=== PATIENT | male | born 1935 | race Caucasian/White ===

== ENCOUNTER 2020-05-25 10:39 | Emergency (ER) | payer MEDICARE, OTHER ==
--- NOTE | 2020-05-25 11:20 | EDM.PDOC ---
ED HPI GENERAL MEDICAL PROBLEM - General Chief Complaint: Trauma Stated Complaint: FELL/HURT NOSE AREA Time Seen by Provider: 05/25/20 11:06 Source of Information: Reports: Patient, Family History Limitations: Reports: Physical Impairment, Other (Hard of Hearing) - History of Present Illness INITIAL COMMENTS - FREE TEXT/NARRATIVE: 85-year-old male at home experienced a witnessed fall that was accidental. No reported loss of consciousness or prolonged downtime. Sustained injury to forehead and nose. Currently denies any headache, weakness, dizziness, pain, chest pain, abdominal pain, shortness of breath. Has not been tested for Covid to date. Has not had symptoms of Covid to date. Does not take a blood thinner. Additional historical information obtained from patient's son. No further information available at this time. Onset: Today (The) Onset Date: 05/25/20 Onset Time: 08:30 - Related Data Allergies Allergy/AdvReac Type Severity Reaction Status Date / Time No Known Allergies Allergy Verified 05/25/20 11:05 Home Meds: Home Meds Aa8/A-Carnitin/Grp/[place]/Hc126 [Gabadone Capsule] 200 mg PO TID 05/25/20 [History] Ascorbate Calcium [Vitamin C] 500 mg PO BID 05/25/20 [History] Aspirin [Aspirin EC] 81 mg PO DAILY 05/25/20 [History] Budesonide/Formoterol [Symbicort 160-4.5 MCG] 2 mcg INH BID 05/25/20 [History] Cetirizine [ZyrTEC] 10 mg PO DAILY 05/25/20 [History] Ferrous Gluconate 324 mg PO BID 05/25/20 [History] Furosemide 40 mg PO DAILY 05/25/20 [History] Ipratropium/Albuterol Sulfate [Iprat-Albut 0.5-3(2.5) MG/3 ML] 1 unit INH Q6HR 05/25/20 [History] Levothyroxine 25 mcg PO ACBREAKFAST 05/25/20 [History] Nitroglycerin [Nitrostat] 0.4 mg SL PRN 05/25/20 [History] Tamsulosin [Flomax] 0.4 mg PO DAILY 05/25/20 [History] Venlafaxine HCl [Venlafaxine ER] 150 mg PO DAILY 05/25/20 [History] atorvaSTATin [Lipitor] 10 mg PO DAILY 05/25/20 [History] tiZANidine [Zanaflex] 4 mg PO BEDTIME 05/25/20 [History] ED ROS GENERAL - Review of Systems Review Of Systems: Comprehensive ROS is negative, except as noted in HPI. ED EXAM, GENERAL - Physical Exam Exam: See Below Exam Limited By: Other (Hard of hearing) Ears: Normal External Exam Nose: Nasal Tenderness, Nasal Swelling Throat/Mouth: Normal Inspection, Normal Voice, No Airway Compromise Head: Facial Swelling, Facial Tenderness Neck: Supple, Non-Tender, Full Range of Motion Respiratory/Chest: No Respiratory Distress, Normal Breath Sounds Cardiovascular: Normal Peripheral Pulses, Regular Rate, Rhythm Peripheral Pulses: 2+: Radial (R), Femoral (L) GI/Abdominal: Soft, Non-Tender, No Distention Back Exam: Normal Inspection Extremities: Normal Inspection, Normal Range of Motion, Non-Tender Neurological: Alert, Oriented, CN II-XII Intact, No Motor/Sensory Deficits Psychiatric: Normal Affect, Normal Mood Course - Vital Signs Last Recorded V/S: Last Vital Signs Temp 99.8 F 05/25/20 11:05 Pulse 78 05/25/20 11:05 Resp 20 05/25/20 11:05 BP 130/55 L 05/25/20 11:05 Pulse Ox 98 05/25/20 11:05 - Radiology Interpretation Free Text/Narrative:: CT imaging of the head, cervical spine and maxillofacial bones was obtained in the emergency department today. The preliminary review by radiology demonstrates no evidence of acute hemorrhage or skull fracture, no cervical spine fracture or acute surgical spine injury, and no facial bone fracture. Please review full reports for specific details. Departure - Departure Time of Disposition: 13:00 Disposition: Home, Self-Care 01 Condition: Good Clinical Impression: Fall, Facial abrasion, Facial contusion - Discharge Information Instructions: Contusion, Ftjw-vs-Civa, Abrasion Referrals: PCP,None [Primary Care Provider] - Forms: ED Department Discharge Additional Instructions: 1. Keep wounds clean and dry. Apply a topical antibacterial ointment to facilitate wound healing and decrease the chance of developing any infection. 2. Take Tylenol as directed on the bottle for pain management. 3. Be cautious with potential for fall. 4. Schedule a follow-up appointment with your primary care doctor in 5 to 7 days. 5. Seek immediate medical attention in an emergency setting with any rapidly worsening symptoms or concerns. Sepsis Event Note (ED) - Focused Exam Vital Signs: Vital Signs Temp Pulse Resp BP Pulse Ox 05/25/20 11:05 99.8 F 78 20 130/55 L 98 - Assessment/Plan Assessment:: 85-year-old male who accidentally fell at home today striking his face on the ground and sustaining several abrasions across the bridge of the nose, above the left eye and to the left cheek. He also sustained bilateral orbital contusions. He is hemodynamically stable. No other injuries are identified on secondary survey. Given his age and clinical injuries CT imaging of the head, face and neck were obtained. The studies were unremarkable for an acute severe injury or fracture. Patient was counseled on wound management. Advised on OTC pain medications. I do not recommend stronger pain medications at this time due to the increased side effect profile and potential increased risk for falls. Patient is appropriate for discharge home and outpatient management, no indication for hospitalization at this time. Advised patient follow-up closely with his primary care doctor and return to an emergency setting immediately with any rapidly worsening symptoms or concerns. Plan: 1. Use [id number] medication such as Tylenol as directed for pain. 2. Keep wounds clean and dry and apply topical antibacterial ointment to facilitate wound healing and decrease the risk of developing infection. 3. Follow-up with your primary care doctor in 5 to 7 days. 4. Return to the emergency department immediately with any rapidly worsening symptoms or concerns.
--- NOTE | 2020-05-25 12:24 | CRLCT ---
INDICATION: Fall, trauma. TECHNIQUE: CT of the head without contrast. Coronal and sagittal reformats. Bone and soft tissue algorithms. COMPARISON: No prior studies available for comparison at this institution. FINDINGS: No acute intracranial hemorrhage or extra-axial collection. No evidence of acute cortical infarction. 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 No mass effect or midline shift. Mild generalized cerebral/cerebellar parenchymal volume loss. Mild regions of decreased attenuation within the periventricular and subcortical white matter of both cerebral hemispheres most likely reflects chronic microvascular ischemic disease and age related change in this patient. Vascular calcifications within the carotid siphons. Orbital contents are normal. No calvarial fractures. No lytic or sclerotic osseous lesions within the calvarium or skull base. Scalp and other imaged soft tissue structures are normal. Mastoid air cells are clear. IMPRESSION: 1. No evidence of acute intracranial abnormality. 2. 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 3. Mild parenchymal volume loss and mild chronic microangiopathic white matter changes. Please note that all CT scans at this facility use dose modulation, iterative reconstruction, and/or weight-based dosing when appropriate to reduce radiation dose to as low as reasonably achievable. Dictated by Brian Koch MD @ May 25 2020 12:20PM Signed by Dr. Brian Koch @ May 25 2020 12:23PM
--- NOTE | 2020-05-25 12:29 | CRLCT ---
Indication: Trauma, fall. Technique: Noncontrast axial CT of the cervical spine with coronal and sagittal reformats are provided. Comparison: No prior studies available for comparison at this institution. Findings: Motion artifact degrades image quality and results in suboptimal evaluation. Levoscoliosis of the cervical spine. There is cervical kyphosis with loss of normal cervical lordosis. Prominent anterior osteophytes at C4-C7 with severe disc height loss and endplate degeneration. Posterior disc osteophyte complexes at C4-5 through C6-7 without significant spinal canal stenosis. No high-grade neural foramina narrowing. Impression: 1. No evidence of acute cervical spine abnormality. 2. Multiple cervical spondylosis. Cervical kyphosis. No high-grade spinal canal stenosis or neural foramina narrowing. Please note that all CT scans at this facility use dose modulation, iterative reconstruction, and/or weight-based dosing when appropriate to reduce radiation dose to as low as reasonably achievable. Dictated by Brian Koch MD @ May 25 2020 12:23PM Signed by Dr. Brian Koch @ May 25 2020 12:28PM
--- NOTE | 2020-05-25 12:35 | CRLCT ---
Indication: Fell, trauma. Technique: Helical axial sections were obtained through the facial skeleton, mandible and adjacent structures without intravenous contrast material. Data was reformatted not only in axial but also coronal planes. Comparison: None Findings: No fracture is demonstrated in the facial skeleton or mandible. Possible mild asymmetric swelling of the left forehead potentially posttraumatic. The orbits and their contents are normal in appearance. There is no evidence for penetrating injury to the ocular globes. The lenses are situated in their normally expected anterior locations. No radiodense or metallic foreign body is demonstrated. No significant abnormality is demonstrated in the sinonasal cavities or adjacent structures. The sinonasal cavities are clear. The ostiomeatal complexes on each side are structurally normal and widely patent. The nasal septum is relatively midline. The patient is edentulous. The visualized portions of the brain are normal in appearance. The left submandibular gland is not visualized potentially postsurgical. Impression: 1. Normal CT of the facial skeleton. 2. Possible mild asymmetric swelling of the left forehead potentially posttraumatic. Please note that all CT scans at this facility use dose modulation, iterative reconstruction, and/or weight-based dosing when appropriate to reduce radiation dose to as low as reasonably achievable. Dictated by Brian Koch MD @ May 25 2020 12:28PM Signed by Dr. Brian Koch @ May 25 2020 12:33PM
== END 2020-05-25 14:27 | disposition home or self-care (01) ==
LOC: JP.ED 10:39
DX: S00.83XA Contusion of other part of head, initial encounter (principal); S00.31XA Abrasion of nose, initial encounter; S00.212A Abrasion of left eyelid and periocular area, initial encounter; S00.81XA Abrasion of other part of head, initial encounter; W19.XXXA Unspecified fall, initial encounter; Y92.009 Unspecified place in unspecified non-institutional (private) residence as the place of occurrence of the external cause
CPT/HCPCS: 70450; 70486; 72125; 99283-25

== ENCOUNTER 2020-11-06 10:30 | Emergency (ER) | payer MEDICARE ==
[2020-11-06] MEDS ORDERED: Acetaminophen 500 MG Tab PO ONE (11:01)
--- NOTE | 2020-11-06 11:06 | EDM.PDOC ---
ED HPI GENERAL MEDICAL PROBLEM - General Chief Complaint: Abdominal Pain Stated Complaint: [facility] Time Seen by Provider: 11/06/20 10:45 Source of Information: Reports: Patient, EMS, Old Records, RN History Limitations: Reports: No Limitations - History of Present Illness INITIAL COMMENTS - FREE TEXT/NARRATIVE: 85 yo male lives with his sister. He arrives via EMS from their home for a sharp L ant/lower anterior chest pain. Sx's were very severe at 6 am when he first experienced it. Pain is better now, but not gone. Took NTG without relief x 2. No fever. Has not eaten today. No hx of the same. Has COPD and is on oxygen at 4 liters/min/nc around the clock. His breathing is not worse than normal. Vitals stable en route via EMS. Onset: Today, Sudden Onset Date: 11/06/20 Onset Time: 06:00 Duration: Hour(s):, Improving Location: Reports: Chest Quality: Reports: Sharp Severity: Severe (initially, now mild) Improves with: Reports: Other (? time) Worsens with: Reports: Other (unknown) Context: Reports: Other (See HPI) Associated Symptoms: Denies: Cough, Diaphoresis, Fever/Chills, Rash, Shortness of Breath Treatments HAND CUTTER: Reports: Nitroglycerin - Related Data Allergies Allergy/AdvReac Type Severity Reaction Status Date / Time No Known Allergies Allergy Verified 11/06/20 10:35 Home Meds: Home Meds Aa8/A-Carnitin/Grp/[place]/Hc126 [Gabadone Capsule] 200 mg PO TID 05/25/20 [History] Ascorbate Calcium [Vitamin C] 500 mg PO BID 05/25/20 [History] Aspirin [Aspirin EC] 81 mg PO DAILY 05/25/20 [History] Budesonide/Formoterol [Symbicort 160-4.5 MCG] 2 mcg INH BID 05/25/20 [History] Cetirizine [ZyrTEC] 10 mg PO DAILY 05/25/20 [History] Ferrous Gluconate 324 mg PO BID 05/25/20 [History] Furosemide 40 mg PO DAILY 05/25/20 [History] Ipratropium/Albuterol Sulfate [Iprat-Albut 0.5-3(2.5) MG/3 ML] 1 unit INH Q6HR 05/25/20 [History] Levothyroxine 25 mcg PO ACBREAKFAST 05/25/20 [History] Nitroglycerin [Nitrostat] 0.4 mg SL ASDIRECTED PRN 05/25/20 [History] Tamsulosin [Flomax] 0.4 mg PO DAILY 05/25/20 [History] Venlafaxine HCl [Venlafaxine ER] 150 mg PO DAILY 05/25/20 [History] atorvaSTATin [Lipitor] 10 mg PO DAILY 05/25/20 [History] tiZANidine [Zanaflex] 4 mg PO BEDTIME 05/25/20 [History] Acetaminophen [Tylenol Arthritis] 650 mg PO BID 11/06/20 [History] Albuterol Sulfate [Albuterol Sulfate Hfa] 2 puff IH Q4H PRN 11/06/20 [History] Calcium Carb/Vit D3/Minerals [Calcium 600+D Plus Minerals] 1 tab PO DAILY 11/06/20 [History] [place]-3 Fatty Acids [Maxepa] 1,000 mg PO DAILY 11/06/20 [History] Omeprazole 20 mg PO DAILY 11/06/20 [History] Sucralfate 1 gm PO QID 11/06/20 [History] Tiotropium [Spiriva] 18 mcg INH DAILY 11/06/20 [History] Past Medical History HEENT History: Reports: Hard of Hearing, Impaired Vision Respiratory History: Reports: Bronchitis, Recurrent, COPD, Pneumonia, Recurrent Gastrointestinal History: Reports: None Musculoskeletal History: Reports: Back Pain, Chronic Neurological History: Reports: Concussion, Other (See Below) Endocrine/Metabolic History: Reports: Hypothyroidism - Past Surgical History Head Surgeries/Procedures: Reports: None HEENT Surgical History: Reports: Cataract Surgery Cardiovascular Surgical History: Reports: None GI Surgical History: Reports: Colonoscopy Endocrine Surgical History: Reports: None Neurological Surgical History: Reports: None Musculoskeletal Surgical History: Reports: Other (See Below) Other Musculoskeletal Surgeries/Procedures:: back surgery Dermatological Surgical History: Reports: None Social & Family History - Caffeine Use Caffeine Use: Reports: Coffee Other Caffeine Use: 2to 3 cups per day ED ROS GENERAL - Review of Systems Review Of Systems: See Below Constitutional: Reports: No Symptoms HEENT: Reports: No Symptoms Respiratory: Reports: Shortness of Breath (chronic), Cough (chronic), Sputum (white sputum, chronic). Denies: Hemoptysis Cardiovascular: Reports: Chest Pain (See HPI, not better with NTG x 2) GI/Abdominal: Reports: No Symptoms : Reports: No Symptoms Musculoskeletal: Reports: No Symptoms Skin: Reports: No Symptoms Neurological: Reports: No Symptoms ED EXAM, GENERAL - Physical Exam Exam: See Below Exam Limited By: Other (Very hard of hearing) General Appearance: Alert, WD/WN, No Apparent Distress Eye Exam: Bilateral Eye: Normal Inspection Ear Exam: Bilateral Ear: Auricle Normal, Canal Normal Nose: Normal Inspection, No Blood Throat/Mouth: Normal Inspection, Normal Lips, Normal Oropharynx, Normal Voice, No Airway Compromise Head: Atraumatic, Normocephalic Neck: Normal Inspection Respiratory/Chest: No Respiratory Distress, Lungs Clear, Normal Breath Sounds, No Accessory Muscle Use, Chest Non-Tender Cardiovascular: Regular Rate, Rhythm, No Edema GI/Abdominal: Normal Bowel Sounds, Soft, No Distention, Tender (mild epigastric and LUQ tenderness). No: Non-Tender, Distended, Guarding, Rigid, Rebound Extremities: Normal Inspection, Normal Range of Motion, Non-Tender, No Pedal Edema Neurological: Alert, Oriented, CN II-XII Intact, Normal Cognition, No Motor/Sensory Deficits Psychiatric: Normal Affect, Normal Mood Skin Exam: Warm, Dry, Intact, Normal Color, No Rash Course - Vital Signs Last Recorded V/S: Last Vital Signs Temp 36.6 C 11/06/20 10:51 Pulse 83 11/06/20 12:34 Resp 20 11/06/20 12:34 BP 118/70 11/06/20 12:34 Pulse Ox 100 11/06/20 12:00 - Orders/Labs/Meds Labs: Laboratory Tests 11/06/20 11/06/20 11/06/20 Range/Units 11:08 11:08 11:08 WBC 7.6 (4.5-11.0) K/uL RBC 3.75 L (4.30-5.90) M/uL Hgb 11.0 L (12.0-15.0) g/dL Hct 35.8 L (40.0-54.0) % MCV 96 (80-98) fL MCH 29 (27-31) pg MCHC 31 L (32-36) % Plt Count 235 (150-400) K/uL D-Dimer, Quantitative 1086.88 H (0.0-500.0) ng/mL Sodium (140-148) mmol/L Potassium (3.6-5.2) mmol/L Chloride (100-108) mmol/L Carbon Dioxide (21-32) mmol/L Anion Gap (5.0-14.0) mmol/L BUN (7-18) mg/dL Creatinine (0.8-1.3) mg/dL Est Cr Clr Drug Dosing mL/min Estimated GFR (MDRD) (>60) Glucose (74-106) mg/dL Calcium (8.5-10.1) mg/dL Troponin I < 0.017 (0.000-0.056) ng/mL 11/06/20 Range/Units 11:08 WBC (4.5-11.0) K/uL RBC (4.30-5.90) M/uL Hgb (12.0-15.0) g/dL Hct (40.0-54.0) % MCV (80-98) fL MCH (27-31) pg MCHC (32-36) % Plt Count (150-400) K/uL D-Dimer, Quantitative (0.0-500.0) ng/mL Sodium 145 (140-148) mmol/L Potassium 4.0 (3.6-5.2) mmol/L Chloride 104 (100-108) mmol/L Carbon Dioxide 32 (21-32) mmol/L Anion Gap 8.9 (5.0-14.0) mmol/L BUN 19 H (7-18) mg/dL Creatinine 1.4 H (0.8-1.3) mg/dL Est Cr Clr Drug Dosing 41.09 mL/min Estimated GFR (MDRD) 48 L (>60) Glucose 101 (74-106) mg/dL Calcium 9.4 (8.5-10.1) mg/dL Troponin I (0.000-0.056) ng/mL Meds: Medications Discontinued Medications Generic Name Dose Route Start Last Admin Trade Name Freq PRN Reason Stop Dose Admin Acetaminophen 1,000 mg 11/06/20 11:01 11/06/20 11:07 Acetaminophen 500 Mg Tab PO 11/06/20 11:02 1,000 mg ONETIME ONE Administration - Re-Assessments/Exams Free Text/Narrative Re-Assessment/Exam: 11/06/20 11:50 Is pain-free now, will feed lunch and see how he tolerates this. Free Text/Narrative Re-Assessment/Exam: 11/06/20 12:47 Ate lunch without issue, no return of his pain. Departure - Departure Time of Disposition: 12:50 Disposition: Home, Self-Care 01 Condition: Good Clinical Impression: Nonspecific chest pain Instructions: Nonspecific Chest Pain, Adult, [id number] Referrals: PCP,None [Primary Care Provider] - Forms: ED Department Discharge Additional Instructions: Continue your usual medications. Follow up with your provider. Return as needed. Sepsis Event Note (ED) - Evaluation Sepsis Screening Result: No Definite Risk - Focused Exam Vital Signs: Vital Signs Temp Pulse Resp BP Pulse Ox 11/06/20 12:34 83 20 118/70 11/06/20 12:00 71 14 119/60 100 11/06/20 11:35 80 15 120/72 93 L 11/06/20 11:05 69 109/64 97 11/06/20 10:51 36.6 C 77 112/64 97 11/06/20 10:30 36.6 C 77 20 112/64 97
== END 2020-11-06 13:02 | disposition home or self-care (01) ==
LOC: JP.ED 10:30
DX: R07.89 Other chest pain (principal); J44.9 Chronic obstructive pulmonary disease, unspecified; E03.9 Hypothyroidism, unspecified; Z79.82 Long term (current) use of aspirin; Z79.899 Other long term (current) drug therapy
CPT/HCPCS: 36415; 80048; 84484; 85027; 85379; 99285; A9270